=== PATIENT | male | born 1975 | race Caucasian/White ===

== ENCOUNTER 2017-03-29 09:11 | Day surgery (SDC) | payer OTHER ==
[2017-03-29 09:34] VITALS: BMI 39.0
[2017-03-29] MEDS ORDERED: Lactated Ringer's 500 ML IV ONE (10:25)
[2017-03-29] MEDS ORDERED: Propofol 10 mg/ml Inj (20 ML) ONE (10:30)
[2017-03-29 10:48] VITALS: TEMP 97.5
[2017-03-29] MEDS ORDERED: Lidocaine Hydrochloride 10 ML INJ ONE (11:17)
[2017-03-29 12:50] VITALS: O2SAT 99
[2017-03-29 12:52] VITALS: BP 110/72; PULSE 68; RESP 12
== END 2017-03-29 11:35 | disposition home or self-care (01) ==
LOC: C.ENDO 09:11
PROVIDERS: ATTEND Internal Medicine Gastroenterology
DX: K30 Functional dyspepsia (principal); K29.70 Gastritis, unspecified, without bleeding
CPT/HCPCS: 43239; 88305; 88312; 88342; J2704; J3010; J7120